=== PATIENT | male | born 1960 | race Asian ===

== ENCOUNTER 2019-02-08 10:16 | Emergency (ER) | payer OTHER ==
[~2019-02-08] VITALS: Ht 162.6 cm; Wt 74.2 kg
[2019-02-08 10:20] VITALS: BP 125/73; PULSE 78; RESP 20; Ht 162.6 cm; Wt 74.2 kg
[2019-02-08] MEDS ORDERED: KETOROLAC 60 MG INJ IM STA (11:47)
[2019-02-08] MEDS ORDERED: traMADol 50 MG TAB PO ONE (12:00)
[2019-02-08] MEDS ORDERED: NAPR-688 PO (13:45)
--- NOTE | 2019-02-08 17:45 | ERD ---
ER Documentation Chief Complaint Chief Complaint pt is bib self with c/o left knee pain for a few days HPI History of Present Illness: 58-year-old male who denies a past medical history coming in today with complaint of left knee pain that has been present since yesterday, patient reports waking up to pain. Patient reports worsening of pain, " just a little bit". At home pharmacological/nonpharmacological treatment for symptoms: Denies Denies social concerns; Denies recent foreign travel ROS All systems reviewed and are negative except as per history of present illness. 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 Allergies Allergies: Coded Allergies: No Known Allergy (Unverified , 02/08/19) PMhx/Soc Medical and Surgical Hx: pt denies Surgical Hx History of Surgery: No Anesthesia Reaction: No Hx Miscellaneous Medical Probl: Yes (HTN,Hyperlipidemia) Hx Alcohol Use: Yes (beer every night) Hx Substance Use: No Hx Tobacco Use: Yes Smoking Status: Current every day smoker Physical Exam Vitals Vital Signs Date Temp Pulse Resp B/P (MAP) Pulse Ox O2 O2 Flow FiO2 Time Delivery Rate 02/08/19 98.7 78 20 125/73 99 10:20 (90) Physical Exam Const: No acute distress Head: Atraumatic Eyes: Normal Conjunctiva ENT: Normal External Ears, Nose and Mouth. Neck: Full range of motion. No meningismus. Resp: Clear to auscultation bilaterally Cardio: Regular rate and rhythm, no murmurs Abd: Soft, non tender, non distended. Normal bowel sounds Skin: No petechiae or rashes Back: No midline or flank tenderness Ext: No cyanosis; mild swelling noted to left knee, no warmth, no erythema, neurovascularly intact distally Neur: Awake and alert Psych: Normal Mood and Affect Results 24 hrs Laboratory Tests Test 02/08/19 11:57 Uric Acid 3.1 mg/dl Current Medications Medications Dose Sig/Rona Start Time Status Last (Trade) Ordered Route PRN Stop Time Admin Dose Reason Admin Ketorolac 60 mg ONCE STAT 02/08/19 DC 02/08/19 Tromethamine IM 11:47 11:58 (Toradol) 02/08/19 11:48 Tramadol 50 mg ONCE ONCE 02/08/19 DC HCl PO 12:00 (Ultram) 02/08/19 12:01 Procedures/MDM ED course includes a thorough examination and history. Medications: Ketorolac, tramadol Imaging: Left knee x-ray Labs: Uric acid Low suspicion for life-threatening medical emergency. Low suspicion for orthopedic emergency that requires hospitalization or immediate surgical intervention Otherwise healthy patient presenting with constellation of symptoms likely representing joint effusion of knee as characterized by history, physical exam findings, lab findings, radiology findings. Uric acid within normal limits. X- ray report showing results of: MPRESSION: Small left knee joint effusion. .Scott Lucero MD, MD Date Time Electronically viewed and signed by .Scott Lucero MD, MD on 02/08/2019 12:55 Patient reassessment @1345: Patient hemodynamically stable. Patient with decreased pain after medication administration. No respiratory distress, otherwise relatively well appearing and nontoxic. Disposition given. Patient educated on diagnoses, prescriptions, follow-up care, return precautions. Strict return precautions given for worsening condition; questions answered discharge. Disposition for discharge with followup in 2 days with PCP/clinic. Departure Diagnosis: Primary Impression: Effusion of knee joint, left Condition: Stable Patient Instructions: Knee Effusion Referrals: [facility] YOU HAVE RECEIVED A MEDICAL SCREENING EXAM AND THE RESULTS INDICATE THAT YOU DO NOT HAVE A CONDITION THAT REQUIRES URGENT TREATMENT IN THE EMERGENCY DEPARTMENT. FURTHER EVALUATION AND TREATMENT OF YOUR CONDITION CAN WAIT UNTIL YOU ARE SEEN IN YOUR DOCTORS OFFICE WITHIN THE NEXT 1-2 DAYS. IT IS YOUR RESPONSIBILITY TO MAKE AN APPOINTMENT FOR FOLOW-UP CARE. IF YOU HAVE A PRIMARY DOCTOR --you should call your primary doctor and schedule an appointment IF YOU DO NOT HAVE A PRIMARY DOCTOR YOU CAN CALL OUR PHYSICIAN REFERRAL HOTLINE AT IF YOU CAN NOT AFFORD TO SEE A PHYSICIAN YOU CAN CHOSE FROM THE FOLLOWING [facility] [address] [facility] [address] [facility]. [facility] [address] [facility] [address] [facility] [facility] [address] [facility] [address] [facility]. [address] [facility]. [facility] YOU HAVE RECEIVED A MEDICAL SCREENING EXAM AND THE RESULTS INDICATE THAT YOU DO NOT HAVE A CONDITION THAT REQUIRES URGENT TREATMENT IN THE EMERGENCY DEPARTMENT. FURTHER EVALUATION AND TREATMENT OF YOUR CONDITION CAN WAIT UNTIL YOU ARE SEEN IN YOUR DOCTORS OFFICE WITHIN THE NEXT 1-2 DAYS. IT IS YOUR RESPONSIBILITY TO MAKE AN APPOINTMENT FOR FOLOW-UP CARE. IF YOU HAVE A PRIMARY DOCTOR --you should call your primary doctor and schedule and appointment IF YOU DO NOT HAVE A PRIMARY DOCTOR YOU CAN CALL OUR PHYSICIAN REFERRAL HOTLINE AT . IF YOU CAN NOT AFFORD TO SEE A PHYSICIAN YOU CAN CHOSE FROM THE FOLLOWING [facility] INSTITUTIONS: [facility] [address] [place] [address] [facility] [address] [place] [address] [facility]LY [facility] + [facility] [address] [place] [address] Additional Instructions: Thank you very much for allowing us to participate in your care. Your health and safety is our top priority at [facility]. It is important to read all discharge instructions and education provided in your discharge packet. *Continue use of compression device to left knee. This will help with decreasing fluid that is present near the knee.* Call your primary care doctor TOMORROW for an appointment during the next 2-4 days and bring all the information and medications prescribed. Have prescriptions filled and follow precisely the directions on the label. -Naproxen is a anti-inflammatory/pain medication; take this medication daily as prescribed for the next week to help with swelling/inflammation/pain. If the symptoms get worse and your provider is unavailable, return to the Emergency Department immediately. KELLEY NAVAS NP February 08, 2019 17:45
== END 2019-02-08 14:10 | disposition home or self-care (01) ==
LOC: FTE 10:16
DX: M25.462 Effusion, left knee (principal); I10 Essential (primary) hypertension; F17.210 Nicotine dependence, cigarettes, uncomplicated
CPT/HCPCS: 73562; 84560; 96372; J1885; Z7502

== ENCOUNTER 2019-04-18 08:53 | Day surgery (SDC) | payer OTHER ==
[~2019-04-18] VITALS: Ht 160 cm; Wt 53.2 kg
[~2019-04-18 08:53] MED LIST: NAPR-688 PO
[2019-04-18] MEDS ORDERED: LOSARTAN (09:49)
[2019-04-18] MEDS ORDERED: ATORVASTATIN (09:49)
[2019-04-18] MEDS ORDERED: FENOFIBRATE (09:49)
[2019-04-18] MEDS ORDERED: ASPIRIN (09:49)
[2019-04-18 09:50] VITALS: Ht 160 cm; Wt 53.2 kg
[2019-04-18 09:52] VITALS: BP 122/78; PULSE 59; RESP 16
[2019-04-18] MEDS ORDERED: LIDOCAINE 4% SOLUTION 50 ML BTL ONE (10:08)
[2019-04-18] MEDS ORDERED: FENTAnyl 50 MCG/ML VIAL ONE (10:53)
[2019-04-18] MEDS ORDERED: MIDAZOLAM 1 MG/ML 2 ML INJ ONE ×2 (10:54)
[2019-04-18 11:21] VITALS: BP 121/61; PULSE 57; RESP 18
== END 2019-04-18 14:11 | disposition home or self-care (01) ==
LOC: GIL 08:53
PROVIDERS: ATTEND Internal Medicine Gastroenterology
DX: R19.5 Other fecal abnormalities (principal); K29.50 Unspecified chronic gastritis without bleeding; K20.8 Other esophagitis
CPT/HCPCS: 43239; 45380; 88305; 88312; J2250; J3010; Z7610